=== PATIENT | male | born 1975 | race Caucasian/White ===

== ENCOUNTER 2017-12-08 10:26 | Outpatient (CLI) | payer OTHER | END 2017-12-08 10:27 | disposition home or self-care (01) | LOC: SC 10:26 | PROVIDERS: ATTEND Internal Medicine Pulmonary Disease | DX: R51 Headache (principal); R06.83 Snoring; G47.8 Other sleep disorders; I10 Essential (primary) hypertension | CPT/HCPCS: 99203; 99212 ==

== ENCOUNTER 2018-01-26 19:30 | Outpatient (CLI) | payer OTHER | END 2018-01-26 19:31 | disposition home or self-care (01) | LOC: SC 19:30 | PROVIDERS: ATTEND Internal Medicine Pulmonary Disease | DX: G47.10 Hypersomnia, unspecified (principal); R06.83 Snoring; I10 Essential (primary) hypertension | CPT/HCPCS: 95810 ==

== ENCOUNTER 2018-02-17 14:44 | Outpatient (CLI) | payer OTHER | END 2018-02-17 14:45 | disposition home or self-care (01) | LOC: SC 14:44 | PROVIDERS: ATTEND Nurse Practitioner Family | DX: R06.83 Snoring (principal); R06.81 Apnea, not elsewhere classified | CPT/HCPCS: 99212; 99213 ==